=== PATIENT | female | born 1940 | race Caucasian/White ===

== ENCOUNTER 2017-04-12 06:17 | Inpatient (IN) | payer BC, OTHER ==
[2017-03-30 15:27] VITALS: BMI 24.0
[2017-04-12] MEDS ORDERED: ROPIVACAINE HCL 0.5% 30ML VIAL ONE (06:36)
[2017-04-12] MEDS ORDERED: MIDAZOLAM HCL 2 MG/2 ML SINGLE DOSE VIAL ONE ×2 (06:36→09:16)
[2017-04-12] MEDS ORDERED: DEXAMETHASONE SOD PHOSPHATE/PF 10 MG/ML SDV ONE (06:36)
[2017-04-12] MEDS ORDERED: SODIUM CHLORIDE 0.9% P/F 10 ML VIAL IJ ONE (06:36)
[2017-04-12] MEDS ORDERED: ePHEDrine SULFATE 50 MG/1 ML AMPULE ONE (07:23)
[2017-04-12] MEDS ORDERED: PROPOFOL 20 ML ONE ×4 (07:24)
[2017-04-12] MEDS ORDERED: TRANEXAMIC ACID 1000 MG/10 ML VIAL ONE (07:50)
[2017-04-12] MEDS ORDERED: ROPIVICAINE 0.2%/MORPH PF/KETOROLAC - 51ML DISP.SYRINGE IA ONE ×2 (07:50→11:19)
[2017-04-12] MEDS ORDERED: oxyCODONE HCL 10 MG SUSTAINED ACTING TABLET ONE (08:04)
[2017-04-12] MEDS ORDERED: CELECOXIB 200 MG CAPSULE ONE (08:05)
[2017-04-12] MEDS ORDERED: GABAPENTIN 300 MG CAPSULE (FP) ONE (08:05)
[2017-04-12] MEDS ORDERED: BUPIVACAINE HCL/PF 0.5% (5MG/ML) 10 ML VIAL ONE (09:26)
[2017-04-12] MEDS ORDERED: oxyCODONE HCL 5 MG TABLET PO PRN (10:59)
[2017-04-12] MEDS ORDERED: ONDANSETRON 4 MG/2 ML VIAL IVPUSH PRN (10:59)
[2017-04-12] MEDS ORDERED: ROPIVACAINE 0.2% 400ML 400 ML ML NR ONE (10:59)
[2017-04-12] MEDS ORDERED: LACTATED RINGERS SOLUTION 1,000 ML IV SCH ×2 (11:00→14:15)
[2017-04-12] MEDS: ACETAMINOPHEN 325 MG TABLET (FP) PO SCH ×3 (13:00→22:05)
[2017-04-12] MEDS ORDERED: TRANEXAMIC ACID 1000 MG/10 ML VIAL IVPB ONE (14:15)
[2017-04-12] MEDS: oxyCODONE HCL 5 MG TABLET PO PRN (14:48)
[2017-04-12] MEDS: CEFAZOLIN 1 GM/D5W 50 ML IVPB SCH (18:51)
--- NOTE | 2017-04-12 20:12 | CONSULT ---
Consult Consult Specialty:: Hospital Medicine Referred by:: Dr. Rojo Reason for Consultation:: Medical Management - History of Present Illness Chief Complaint: s/p L-TKR History of Present Illness: This is a 77 y/o woman with a PMHx of: Hypertension, Hyperlipidemia, Hypothyroidism (no meds), OA. s/p L-TKR POD #0. Patient is at bedside, AAOx3, reports moderate pain 5-6/10 to left knee. Patient reports having full sensation to her lower extremity. Patient reports voiding and passing flatulence. Patient reports ambulating to the bathroom with assistance. Patient denies fever, chills, cough, SOB, dizziness, CP, AP, N/V/D, dysuria. 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: No: Alzheimer's, CVA, Dementia, Migraine, Multiple Sclerosis, Peripheral Neuropathy, Parkinson's, Seizure, Syncope, TIA, Vertigo, Other Cardio/Vascular: Yes: HTN, Hyperlipdemia Pulmonary: No: Asthma, Bronchitis, Cancer, COPD, O2 Dependent, Pneumonia, Previously Intubated, Pulmonary Embolus, Pulmonary Fibrosis, Sleep Apnea, Other Gastrointestinal: No: Ascites, Cancer, Constipation, Crohn's Disease, Diverticulitis, Diverticulosis, Esophageal Varices, Gastritis, GERD, GI Bleed, Hemorrhoids, Hiatal Hernia, Inflamatory Bowel Disease, Irritable Bowel Disease, Pancreatitis, Peptic Ulcer Disease, Ulcerative Colitis, Other Hepatobiliary: No: Cirrhosis, Cholelithiasis, Cholecystitis, Choledocholithiasis , Hepatitis A, Hepatitis B, Hepatitis C, Other Renal/: No: Renal Failure, Renal Inusuff, BPH, Cancer, Hematuria, Hemodialysis , Neurogenic Bladder, Renal Calculi, UTI, Other Reproductive: Yes: Postmenopausal Heme/Onc: No: Anemia, B12 Deficiency, Bleeding Disorder, Cancer, Current Chemotherapy, Current Radiation Therapy, Hemochromatosis, Hypercoaguable State, Myeloproliferative Synd, Sickle Cell Disease, Sickle Cell Trait, Thrombocytopenia, Other Infectious Disease: No: AIDS, C-Diff, Herpes Zoster, HIV, MRSA, STD's, Tuberculosis, VREF, Other Psych: No: Addictions, Anxiety, Bipolar, Depression, Panic, Psychosis, Schizophrenia, Other Musculoskeletal: Yes: Osteoarthritis Rheumatology: No: Fibromyalgia, Gout, Lupus, Rheumatoid Arthritis, Sarcoidosis, Vasculitis, Other ENT: No: Allergic Rhinitis, Sinusitis, Other Endocrine: Yes: Hypothyroidism Dermatology: No: Basal Cell, Cellulitis, Eczema, Melanoma, Psoriasis, Squamous Cell, Other - Past Surgical History Past Surgical History: Yes: Arthrosocopy (left knee), Hysterectomy - Alcohol/Substance Use Hx Alcohol Use: No (RARELY) History of Substance Use: reports: None - Smoking History Smoking history: Never smoked Have you smoked in the past 12 months: No - Social History Usual Living Arrangement: Alone ADL: Independent History of Recent Travel: No Home Medications - Allergies Allergies/Adverse Reactions: Allergies Allergy/AdvReac Type Severity Reaction Status Date / Time Penicillins Allergy Severe Hives Verified 03/30/17 14:49 - Home Medications Home Medications: Ambulatory Orders Amlodipine/Valsartan [Amlodipine-Valsartan 5-160 mg] 1 each PO DAILY 03/30/17 Calcium Phosphate Trib/Vit D3 [Calcium + Vitamin D3 Gummies] 1 each PO DAILY Multivitamins [Tab-A-Vit -] 1 tab PO DAILY 03/30/17 [place]-3/Dha/Epa/Fish Oil [[place] 3 500 Softgel] 2 each PO BID 03/30/17 Pravastatin Sodium [Pravachol (Nf)] 40 mg PO HS 03/30/17 Family Disease History - Family Disease History Family History: Unremarkable Review of Systems - Review of Systems Musculoskeletal: reports: Extremity Pain (left knee pain) Physical Exam Vital Signs: Vital Signs Temperature 97.8 F 04/12/17 13:30 Pulse Rate 92 H 04/12/17 13:30 Respiratory Rate 17 04/12/17 13:30 Blood Pressure 132/62 04/12/17 13:30 O2 Sat by Pulse Oximetry (%) 99 04/12/17 13:30 Constitutional: Yes: Well Nourished, No Distress Eyes: Yes: WNL, Conjunctiva Clear, EOM Intact, PERRL HENT: Yes: WNL, Atraumatic, Normocephalic Neck: Yes: WNL, Supple, Trachea Midline Cardiovascular: Yes: WNL, Regular Rate and Rhythm, S1, S2 Respiratory: Yes: WNL, Regular, CTA Bilaterally Gastrointestinal: Yes: WNL, Normal Bowel Sounds, Soft ...Rectal Exam: Yes: Deferred Renal/: Yes: WNL Breast(s): Yes: WNL Musculoskeletal: Yes: Joint Swelling (left), Other (Swelling to left knee, surgical dressing dry and intact, +icepack) Extremities: Yes: WNL Edema: No Peripheral Pulses WNL: Yes Wound/Incision: Yes: Dressing Dry and Intact Neurological: Yes: WNL, Alert, Oriented, Cran Nerves II-XII Intact ...Motor Strength: LUE, RUE, RLE Psychiatric: Yes: WNL, Alert, Oriented Problem List - Problems (1) Status post total left knee replacement Code(s): Z96.652 - PRESENCE OF LEFT ARTIFICIAL KNEE JOINT (2) Osteoarthritis Code(s): M19.90 - UNSPECIFIED OSTEOARTHRITIS, UNSPECIFIED SITE (3) HTN (hypertension) Code(s): I10 - ESSENTIAL (PRIMARY) HYPERTENSION (4) HLD (hyperlipidemia) Code(s): E78.5 - HYPERLIPIDEMIA, UNSPECIFIED (5) Hypothyroidism Code(s): E03.9 - HYPOTHYROIDISM, UNSPECIFIED (6) DVT prophylaxis Code(s): YON0582 - Assessment/Plan 77 y/o woman s/p L-TKR POD #0 Plan 1. Continue Ortho regimen 2. Hypertension- Continue home meds, monitor renal function 3. Hyperlipidemia- Continue statin 4. Hypothroid- Continue to monitor 5. Monitor CBC, BMP. Transfuse if Hgb < 7.0 6. PT 7. f/u with Change Agent regarding patient's apartment with multiple stairs ( per patient's concern) 8. Continue Incentive Spirometry use 9. Continue DVT/PPI Prophylaxis Visit type - Emergency Visit Emergency Visit: No - New Patient This patient is new to me today: Yes Date on this admission: 04/12/17 - Critical Care Critical Care patient: No
[2017-04-12] MEDS: ASCORBIC ACID 500 MG TABLET (FP) PO SCH (22:04)
[2017-04-12] MEDS: FERROUS SO4 325 MG TABLET (FP) PO SCH (22:04)
[2017-04-12] MEDS: oxyCODONE HCL 10 MG SUSTAINED ACTING TABLET PO SCH (22:04)
[2017-04-12] MEDS: ATORVASTATIN CA 10 MG TABLET (FP) PO SCH (22:05)
[2017-04-13] MEDS: CEFAZOLIN 1 GM/D5W 50 ML IVPB SCH (01:25)
[2017-04-13] MEDS: ACETAMINOPHEN 325 MG TABLET (FP) PO SCH ×3 (05:33→22:36)
[2017-04-13] MEDS: oxyCODONE HCL 5 MG TABLET PO PRN (05:34)
[2017-04-13] MEDS ORDERED: ONDANSETRON 4 MG/2 ML VIAL ONE (06:58)
[2017-04-13] MEDS: ASPIRIN 325 MG TABLET PO SCH ×2 (08:30→20:12)
[2017-04-13 08:57] LABS: MCH 31.6 pg (25.7-33.7); MCHC 33.8 g/dl (32.0-36.0); MEAN CELL VOLUME 93.5 fl (80-96); MEAN PLT VOLUME 8.6 fl (7.5-11.1); PLATELET COUNT 204 K/MM3 (134-434); RDW 12.8 % (11.6-15.6); WHITE BLOOD COUNT 15.1 K/mm3 (4.0-10.8)
[2017-04-13 09:04] LABS: ANION GAP 7 (8-16); CALCIUM 9.1 mg/dl (8.4-10.2); CO2 25 mmol/L (22-28); GLUCOSE,RANDOM 97 mg/dl (74-106)
[2017-04-13] MEDS: CELECOXIB 200 MG CAPSULE PO SCH (09:39)
[2017-04-13] MEDS: VALSARTAN 160 MG TABLET (UD) PO SCH (09:42)
[2017-04-13] MEDS: FERROUS SO4 325 MG TABLET (FP) PO SCH ×2 (09:43→21:09)
[2017-04-13] MEDS: ASCORBIC ACID 500 MG TABLET (FP) PO SCH ×2 (09:43→21:09)
[2017-04-13] MEDS: oxyCODONE HCL 10 MG SUSTAINED ACTING TABLET PO SCH ×2 (09:43→21:09)
[2017-04-13] MEDS: amLODIPine BESYLATE 5 MG TABLET (FP) PO SCH (09:43)
--- NOTE | 2017-04-13 13:28 | PN ---
Physical Exam: SUBJECTIVE: Patient seen and examined, reports feeling well, reports pain to left knee upon movement, pt denies any paresthesia to the extremity, chest pain or shortness of breath. OBJECTIVE: patient is a 77 y/o woman with a PMHx of: Hypertension, Hyperlipidemia, Hypothyroidism (no meds), OA. s/p L-TKR POD # 1 ([place]) Vital Signs Period Temp Pulse Resp BP Sys/[place] Pulse Ox Last 24 Hr 97.8 F-98.9 F 85-92 17-18 117-132/43-62 93-99 GENERAL: The patient is awake, alert, and fully oriented, in no acute distress. HEAD: Normal with no signs of trauma. EYES: PERRL, extraocular movements intact, sclera anicteric, conjunctiva clear. No ptosis. ENT: Ears normal, nares patent, oropharynx clear without exudates, moist mucous membranes. NECK: Trachea midline, full range of motion, supple. LUNGS: Breath sounds equal, clear to auscultation bilaterally, no wheezes, no crackles, no accessory muscle use. HEART: Regular rate and rhythm, S1, S2 without murmur, rub or gallop. ABDOMEN: Soft, nontender, nondistended, normoactive bowel sounds, no guarding, no rebound, no hepatosplenomegaly, no masses. EXTREMITIES: 2+ pulses, warm, well-perfused, no edema. LEFT LOWER EXTREMITY: dressing CDI, less than 3 second capillary refill, +3 pedal pulse NEUROLOGICAL: Cranial nerves II through XII grossly intact. Normal speech, gait not observed. PSYCH: Normal mood, normal affect. SKIN: Warm, dry, normal turgor, no rashes or lesions noted Laboratory Results - last 24 hr 04/13/17 04/13/17 08:30 08:30 WBC 15.1 H RBC 3.22 L Hgb 10.2 L Hct 30.1 L MCV 93.5 MCHC 33.8 RDW 12.8 Plt Count 204 MPV 8.6 Sodium 137 Potassium 4.8 Chloride 105 Carbon Dioxide 25 Anion Gap 7 L BUN 28 H Creatinine 1.0 Random Glucose 97 Calcium 9.1 Active Medications Generic Name Dose Route Start Last Admin Trade Name Freq PRN Reason Stop Dose Admin Acetaminophen 650 mg 04/12/17 11:00 04/13/17 05:33 Tylenol - PO 04/15/17 10:59 650 mg Q6H HEDY Administration Amlodipine Besylate 5 mg 04/13/17 10:00 04/13/17 09:43 Norvasc - PO 5 mg DAILY HEDY Administration Ascorbic Acid 500 mg 04/12/17 22:00 04/13/17 09:43 Vitamin C - PO 500 mg BID HEDY Administration Aspirin 325 mg 04/13/17 08:00 04/13/17 08:30 Asa - PO 325 mg BID@0800,2000 HEDY Administration Atorvastatin Calcium 10 mg 04/12/17 22:00 04/12/17 22:05 Lipitor - PO 10 mg HS HEDY Administration Celecoxib 200 mg 04/13/17 10:00 04/13/17 09:39 Celebrex - PO 200 mg DAILY HEDY Administration Fentanyl 50 mcg 04/12/17 10:59 Sublimaze Injection - IVPUSH 04/15/17 11:00 [id number] PRN PAIN Ferrous Sulfate 325 mg 04/12/17 22:00 04/13/17 09:43 Feosol - PO 325 mg BID HEDY Administration Lactated Ringer's 1,000 mls @ 125 mls/hr 04/12/17 11:00 Lactated Ringers Solution IV ASDIR HEDY Lactated Ringer's 1,000 mls @ 125 mls/hr 04/12/17 14:15 04/12/17 14:48 Lactated Ringers Solution IV 125 mls/hr ASDIR HEDY Administration Oxycodone HCl 10 mg 04/12/17 22:00 04/13/17 09:43 Oxycontin - PO 04/15/17 11:00 10 mg BID HEDY Administration Oxycodone HCl 5 mg 04/12/17 10:59 04/12/17 22:05 Roxicodone - PO 04/15/17 11:00 5 mg Q4H PRN Administration PAIN Oxycodone HCl 10 mg 04/12/17 10:59 04/13/17 05:34 Roxicodone - PO 04/15/17 11:00 10 mg Q4H PRN Administration PAIN Valsartan 160 mg 04/13/17 10:00 04/13/17 09:42 Diovan - PO 160 mg DAILY HEDY Administration ASSESSMENT/PLAN: 1) ortho: s/p left TKR pod#1 - physical therapy as per orthopedist - prn pain medication - incentive spirometer 2) card hypertension - b/p at goal, continue diovan and norvasc creatine wnl hyperlipidemia - continue statine 3) endo hypothyroidism - no home meds as per patient, continue to monitor f/e/n - low sodium diet ppx - dvt prophalaxis as per ortho - zantac - pt - scd/govind Thank you for this consultative opportunity, will continue to follow .
[2017-04-13] MEDS: ATORVASTATIN CA 10 MG TABLET (FP) PO SCH (21:09)
[2017-04-14] MEDS: ACETAMINOPHEN 325 MG TABLET (FP) PO SCH ×2 (05:32→12:00)
[2017-04-14 06:46] VITALS: BP 137/63; PULSE 72; TEMP 98
[2017-04-14 08:10] LABS: MCH 32.3 pg (25.7-33.7); MCHC 34.3 g/dl (32.0-36.0); MEAN CELL VOLUME 94.2 fl (80-96); MEAN PLT VOLUME 8.4 fl (7.5-11.1); PLATELET COUNT 196 K/MM3 (134-434); WHITE BLOOD COUNT 11.9 K/mm3 (4.0-10.8)
[2017-04-14] MEDS: ASPIRIN 325 MG TABLET PO SCH (08:11)
[2017-04-14] MEDS: oxyCODONE HCL 10 MG SUSTAINED ACTING TABLET PO SCH (09:28)
[2017-04-14] MEDS: CELECOXIB 200 MG CAPSULE PO SCH (09:29)
[2017-04-14] MEDS: VALSARTAN 160 MG TABLET (UD) PO SCH (09:29)
[2017-04-14] MEDS: amLODIPine BESYLATE 5 MG TABLET (FP) PO SCH (09:29)
[2017-04-14] MEDS: FERROUS SO4 325 MG TABLET (FP) PO SCH (09:29)
--- NOTE | 2017-04-17 15:35 | PATH ---
Surgical Pathology Report Patient Name: YEHUDA JUNG Med. Rec. #: [id number] /Age/Gender: 1940 (Age: 77) / F Account: [id number] Location: [facility] Taken: 04/12/2017 Received: 04/12/2017 Reported: 04/17/2017 Physicians: Yolande Rojo M.D. Specimen(s) Received LEFT KNEE BONES Clinical History Unilateral primary osteoarthritis left knee Final Diagnosis KNEE BONES, LEFT, TOTAL KNEE REPLACEMENT: DEGENERATIVE JOINT DISEASE. Electronically Signed Shirlene Ng M.D. Gross Description Received in formalin labeled "left knee bones," is an 11.3 x 9.0 x 1.5 cm aggregate of multiple dao, irregular portions of bone and soft tissue. The tibial plateau measures 7.3 x 4.9 x 1.5 cm. There is a 1.7 cm in greatest dimension area of eburnation present. The remaining articular surfaces are dao-yellow and diffusely granular. The underlying trabecular bone is yellow and hard. Treating Engineer sections are submitted in one cassette, following decalcification. /04/13/201704/13/2017
== END 2017-04-14 14:55 | disposition home or self-care (01) | DRG 470 ==
LOC: FM/S 06:17
PROVIDERS: ADMIT Orthopaedic Surgery; ATTEND Orthopaedic Surgery
PROC: 0SRD0JZ Replacement of Left Knee Joint with Synthetic Substitute, Open Approach (ICD-10-PCS; principal; 2017-04-12 09:16)
DX: M17.12 Unilateral primary osteoarthritis, left knee (principal); E03.9 Hypothyroidism, unspecified; I10 Essential (primary) hypertension; E78.5 Hyperlipidemia, unspecified
CPT/HCPCS: 36415; 73560-TC-LT; 80048; 85027; 88304-TC; 88311-TC; 94010; 94760; 97116-GP; 97162